=== PATIENT | male | born 1975 | race Two or more races ===

== ENCOUNTER 2019-02-22 06:55 | Emergency (ER) | payer MEDICAID ==
[~2019-02-22] VITALS: Ht 182.9 cm; Wt 79.0 kg
[2019-02-22 07:06] VITALS: BP 119/78
== END 2019-02-22 07:53 | disposition home or self-care (01) ==
LOC: ER 06:55
DX: L02.416 Cutaneous abscess of left lower limb (principal); K02.9 Dental caries, unspecified; Z72.0 Tobacco use; I10 Essential (primary) hypertension; F12.90 Cannabis use, unspecified, uncomplicated; Z87.828 Personal history of other (healed) physical injury and trauma
CPT/HCPCS: 99283

== ENCOUNTER 2019-02-26 08:21 | Emergency (ER) | payer MEDICAID ==
[~2019-02-26] VITALS: Ht 182.9 cm; Wt 84.0 kg
[2019-02-26 08:43] VITALS: BP 129/86
== END 2019-02-26 09:20 | disposition home or self-care (01) ==
LOC: ER 08:21
DX: L02.416 Cutaneous abscess of left lower limb (principal)
CPT/HCPCS: 99283

== ENCOUNTER 2019-03-14 03:15 | Emergency (ER) | payer MEDICAID ==
[~2019-03-14] VITALS: Ht 182.9 cm; Wt 82.0 kg
[2019-03-14 05:47] VITALS: BP 135/81
[2019-03-14] MEDS ORDERED: CEPHALEXIN 250MG CAPSULE PO ONE (06:45)
[2019-03-14] MEDS ORDERED: IBUPROFEN 800MG TABLET PO ONE (06:45)
== END 2019-03-14 08:01 | disposition home or self-care (01) ==
LOC: ER 03:15
DX: L02.416 Cutaneous abscess of left lower limb (principal); R68.84 Jaw pain; F12.10 Cannabis abuse, uncomplicated; F17.210 Nicotine dependence, cigarettes, uncomplicated
CPT/HCPCS: 99283; 99406

== ENCOUNTER 2019-07-07 15:42 | Emergency (ER) | payer MEDICAID ==
[~2019-07-07] VITALS: Ht 172.7 cm; Wt 75.0 kg
[2019-07-07 15:56] VITALS: BP 131/91
[2019-07-07] MEDS ORDERED: CEPHALEXIN 250MG CAPSULE PO ONE (16:30)
[2019-07-07] MEDS ORDERED: IBUPROFEN 600MG TABLET PO ONE (16:30)
== END 2019-07-07 16:41 | disposition home or self-care (01) ==
LOC: ER 15:42
DX: L02.211 Cutaneous abscess of abdominal wall (principal); R03.0 Elevated blood-pressure reading, without diagnosis of hypertension; F12.90 Cannabis use, unspecified, uncomplicated
CPT/HCPCS: 99283

== ENCOUNTER 2019-09-01 14:45 | Emergency (ER) | payer MEDICAID ==
[~2019-09-01] VITALS: Ht 180.3 cm; Wt 77.0 kg
[2019-09-01 15:14] VITALS: BP 146/89
== END 2019-09-01 18:14 | disposition home or self-care (01) ==
LOC: ER 14:45
DX: L03.113 Cellulitis of right upper limb (principal); S61.216A Laceration without foreign body of right little finger without damage to nail, initial encounter; W22.8XXA Striking against or struck by other objects, initial encounter; Y93.89 Activity, other specified; Y92.89 Other specified places as the place of occurrence of the external cause
CPT/HCPCS: 99283

== ENCOUNTER 2019-11-15 04:16 | Emergency (ER) | payer MEDICAID ==
[~2019-11-15] VITALS: Ht 182.9 cm; Wt 82.0 kg
[2019-11-15 05:11] VITALS: BP 124/76
== END 2019-11-15 05:14 | disposition home or self-care (01) ==
LOC: ER 04:16
DX: B00.9 Herpesviral infection, unspecified (principal)
CPT/HCPCS: 99282

== ENCOUNTER 2020-12-17 18:50 | Emergency (ER) | payer MEDICAID ==
[~2020-12-17] VITALS: Ht 182.9 cm; Wt 109.0 kg
[2020-12-17 19:03] VITALS: BP 121/88
[2020-12-17] MEDS ORDERED: CEPH500C2 MT (19:38)
[2020-12-17] MEDS ORDERED: CLOT15CR27 TP (19:38)
[2020-12-17] MEDS ORDERED: CEPHALEXIN 250MG CAPSULE PO ONE (19:45)
[2020-12-17] MEDS ORDERED: IBUPROFEN 600MG TABLET PO ONE (19:45)
== END 2020-12-17 20:30 | disposition home or self-care (01) ==
LOC: ER 18:50
DX: L03.116 Cellulitis of left lower limb (principal); L03.115 Cellulitis of right lower limb; B35.3 Tinea pedis
CPT/HCPCS: 99283

== ENCOUNTER 2021-09-26 09:01 | Emergency (ER) | payer MEDICAID ==
[~2021-09-26] VITALS: Ht 182.9 cm; Wt 109.0 kg
[~2021-09-26 09:01] MED LIST: CEPH500C2 MT; CLOT15CR27 TP
[2021-09-26 09:09] VITALS: BP 136/98
[2021-09-26] MEDS ORDERED: CEPH500C2 MT (12:50)
== END 2021-09-26 12:59 | disposition home or self-care (01) ==
LOC: ER 09:01
DX: L03.114 Cellulitis of left upper limb (principal); L03.113 Cellulitis of right upper limb; L03.811 Cellulitis of head [any part, except face]; M79.89 Other specified soft tissue disorders
CPT/HCPCS: 99283

== ENCOUNTER 2021-10-06 13:21 | Emergency (ER) | payer MEDICAID ==
[~2021-10-06] VITALS: Ht 177.8 cm; Wt 90.0 kg
[2021-10-06 13:31] VITALS: BP 167/126
[2021-10-06] MEDS ORDERED: SULF1TAB48 MT (15:29)
[2021-10-06] MEDS ORDERED: IBUP-2030 MT (15:29)
[2021-10-06] MEDS ORDERED: CLOT24CR TP (15:29)
[2021-10-06] MEDS ORDERED: IBUPROFEN 800MG TABLET PO ONE (15:30)
[2021-10-06] MEDS ORDERED: CEFTRIAXONE SODIUM 1 G/VIAL IM ONE (15:30)
[2021-10-06] MEDS ORDERED: CEFTRIAXONE SODIUM 1 G/VIAL IM NR (17:00)
[2021-10-06 17:03] LABS: CLARITY URINE CLEAR (CLEAR); COLOR URINE YELLOW (YELLOW); KETONES URINE TRACE (NEGATIVE); LEUKOCYTE ESTERASE URINE 1+ (NEGATIVE); NITRITE URINE NEGATIVE (NEGATIVE); OCCULT BLOOD URINE NEGATIVE (NEGATIVE); PH URINE 5.5 (4.5-8.0); PROTEIN URINE TRACE (NEGATIVE); SPECIFIC GRAVITY URINE 1.021 (1.005-1.030); UROBILINOGEN URINE 0.2 E.U./dL (0.2-1.0)
[2021-10-06 17:18] LABS: *AMPHETAMINES SCREEN URINE PRESUMTIVE POSITIVE (NEGATIVE); *BARBITURATES SCREEN URINE NEGATIVE (NEGATIVE); *BENZODIAZEPINES SCREEN URINE NEGATIVE (NEGATIVE); *COCAINE SCREEN URINE PRESUMTIVE POSITIVE (NEGATIVE); CANNABINOID URINE SCREEN PRESUMTIVE POSITIVE (NEGATIVE); METHADONE URINE SCREEN NEGATIVE (NEGATIVE); OPIATES URINE SCREEN NEGATIVE (NEGATIVE); PHENCYCLIDINE URINE SCREEN NEGATIVE (NEGATIVE)
[2021-10-10 04:07] LABS: NEISSERIA GONORRHOEAE NAA Negative (Negative)
== END 2021-10-06 17:00 | disposition home or self-care (01) ==
LOC: ER 13:55
DX: N48.1 Balanitis (principal); F15.129 Other stimulant abuse with intoxication, unspecified; F14.129 Cocaine abuse with intoxication, unspecified; F12.10 Cannabis abuse, uncomplicated; R03.0 Elevated blood-pressure reading, without diagnosis of hypertension
CPT/HCPCS: 80305; 81003; 87491; 87591; 99283; J0696

== ENCOUNTER 2021-11-15 07:20 | Emergency (ER) | payer MEDICAID ==
[~2021-11-15] VITALS: Ht 182.9 cm; Wt 100.0 kg
[~2021-11-15 07:20] MED LIST changes: +CLOT24CR TP; +IBUP-2030 MT; +SULF1TAB48 MT
[2021-11-15 07:34] VITALS: BP 142/100
[2021-11-15] MEDS ORDERED: TOPUD PO (09:17)
== END 2021-11-15 09:38 | disposition home or self-care (01) ==
LOC: ER 07:20
DX: K14.6 Glossodynia (principal); M54.2 Cervicalgia; R10.9 Unspecified abdominal pain; R03.0 Elevated blood-pressure reading, without diagnosis of hypertension; F12.90 Cannabis use, unspecified, uncomplicated; F15.90 Other stimulant use, unspecified, uncomplicated
CPT/HCPCS: 70490; 99284

== ENCOUNTER 2022-01-21 15:03 | Emergency (ER) | payer MEDICAID ==
[~2022-01-21] VITALS: Ht 182.9 cm; Wt 95.0 kg
[~2022-01-21 15:03] MED LIST changes: +TOPUD PO
[2022-01-21 15:26] VITALS: BP 154/95
[2022-01-21] MEDS ORDERED: KETOROLAC 60MG/2ML VIAL IM ONE (18:00)
== END 2022-01-21 18:09 | disposition left against medical advice (07) ==
LOC: ER 15:14
DX: M25.561 Pain in right knee (principal); M79.89 Other specified soft tissue disorders
CPT/HCPCS: 99281

== ENCOUNTER 2022-02-27 21:58 | Emergency (ER) | payer MEDICAID ==
[~2022-02-27] VITALS: Ht 182.9 cm; Wt 97.5 kg
[2022-02-27 22:34] VITALS: BP 137/90
[2022-02-28 02:12] LABS: BASOPHILS % 0.9 % (0.0-2.0); HEMATOCRIT. 40.5 % (42.0-52.0); HEMOGLOBIN. 13.6 g/dL (14.0-18.0); LYMPHOCYTES % 25.3 % (20.0-50.0); MEAN CORPUSCULAR HEMOGLOBIN 29.4 pg (28.0-32.0); MEAN CORPUSCULAR VOLUME 87.4 fL (80.0-94.0); MONOCYTES % 8.5 % (2.0-8.0); NEUTROPHILS % 61.3 % (40.0-76.0); PLATELET 272 x1000/uL (130-400); RED BLOOD CELL COUNT 4.63 mill/uL (4.7-6.1); RED CELL DISTRIBUTION WIDTH 14.1 % (11.6-14.6)
[2022-02-28 02:19] LABS: CHLORIDE 107 mEq/L (98-107)
[2022-02-28 02:27] LABS: ETHANOL BLOOD < 10 mg/dL
[2022-02-28 02:31] LABS: CLARITY URINE CLEAR (CLEAR); COLOR URINE YELLOW (YELLOW); KETONES URINE NEGATIVE (NEGATIVE); LEUKOCYTE ESTERASE URINE NEGATIVE (NEGATIVE); NITRITE URINE NEGATIVE (NEGATIVE); OCCULT BLOOD URINE NEGATIVE (NEGATIVE); PH URINE 5.5 (4.5-8.0); PROTEIN URINE NEGATIVE (NEGATIVE); SPECIFIC GRAVITY URINE 1.016 (1.005-1.030); UROBILINOGEN URINE 0.2 E.U./dL (0.2-1.0)
[2022-02-28 03:01] LABS: HEPATITIS B SURFACE ANTIGEN NEGATIVE
== END 2022-02-28 04:00 | disposition home or self-care (01) ==
LOC: ER 21:58
DX: Z20.5 Contact with and (suspected) exposure to viral hepatitis (principal); I45.6 Pre-excitation syndrome
CPT/HCPCS: 36415; 80053; 80320; 81003; 85025; 86705; 86709; 86803; 87340; 99283; G0480

== ENCOUNTER 2022-04-09 12:37 | Emergency (ER) | payer MEDICAID ==
[~2022-04-09] VITALS: Ht 182.9 cm; Wt 92.0 kg
[2022-04-09] MEDS ORDERED: KETOROLAC 60MG/2ML VIAL IM STA (16:48)
[2022-04-09] MEDS ORDERED: HYDROCODONE/ACETAMINOPHEN 5/325MG TABLET PO STA (17:46)
[2022-04-09] MEDS ORDERED: IBUP-2029 MT (19:59)
[2022-04-09] MEDS ORDERED: T3 PO (19:59)
[2022-04-09] MEDS ORDERED: HYDROCODONE/ACETAMINOPHEN 5/325MG TABLET PO NR (20:00)
[2022-04-09] MEDS ORDERED: KETOROLAC 60MG/2ML VIAL IM NR (20:00)
[2022-04-09] MEDS ORDERED: KETOROLAC 60MG/2ML VIAL IM ONE (20:30)
[2022-04-09 20:34] VITALS: BP 118/101
== END 2022-04-09 21:09 | disposition home or self-care (01) ==
LOC: ER 12:37
DX: S52.502A Unspecified fracture of the lower end of left radius, initial encounter for closed fracture (principal); F12.10 Cannabis abuse, uncomplicated; Z98.890 Other specified postprocedural states; F15.10 Other stimulant abuse, uncomplicated; Y04.0XXA Assault by unarmed brawl or fight, initial encounter; Y93.89 Activity, other specified; Y92.89 Other specified places as the place of occurrence of the external cause; Y99.8 Other external cause status
CPT/HCPCS: 29105; 73030; 73080; 73090; 73110; 73130; 73562; 96372; 99284; J1885; Z7610; A4565

== ENCOUNTER 2023-03-09 16:24 | Emergency (ER) | payer MEDICAID ==
[~2023-03-09] VITALS: Ht 180.3 cm; Wt 90.0 kg
[~2023-03-09 16:24] MED LIST changes: +IBUP-2029 MT; +T3 PO
[2023-03-09 16:38] VITALS: BP 154/103; PULSE 104; RESP 20; TEMP 98.1; O2SAT 100
[2023-03-09] MEDS ORDERED: CEPH500C2 MT (19:14)
== END 2023-03-09 20:11 | disposition home or self-care (01) ==
LOC: ER 16:24
DX: L03.116 Cellulitis of left lower limb (principal); F12.90 Cannabis use, unspecified, uncomplicated; F15.90 Other stimulant use, unspecified, uncomplicated
CPT/HCPCS: 99283

== ENCOUNTER 2023-03-30 15:08 | Emergency (ER) | payer MEDICAID ==
[~2023-03-30] VITALS: Ht 182.9 cm; Wt 87.0 kg
[2023-03-30 15:21] VITALS: BP 140/102; PULSE 99; RESP 16; TEMP 98.9; O2SAT 99
[2023-03-30] MEDS ORDERED: CEFTRIAXONE SODIUM 500MG VIAL IM ONE (18:45)
[2023-03-30 18:48] LABS: CLARITY URINE CLEAR (CLEAR); COLOR URINE YELLOW (YELLOW); GLUCOSE URINE NEGATIVE (NEGATIVE); KETONES URINE NEGATIVE (NEGATIVE); LEUKOCYTE ESTERASE URINE NEGATIVE (NEGATIVE); NITRITE URINE NEGATIVE (NEGATIVE); OCCULT BLOOD URINE NEGATIVE (NEGATIVE); PROTEIN URINE NEGATIVE (NEGATIVE); SPECIFIC GRAVITY URINE 1.014 (1.005-1.030)
[2023-03-30] MEDS ORDERED: DOXY100C5 MT (19:06)
[2023-03-30] MEDS ORDERED: LIDOCAINE HCL 1% 20ML VIAL (Pyxis) INJ INFIL ONE (19:45)
[2023-04-01] MEDS ORDERED: SUCCINYLCHOLINE CHLORIDE 200MG/10ML IV ONE (17:19)
[2023-04-01] MEDS ORDERED: DEXAMETHASONE 4MG/ML 1ML VIAL ONE (17:19)
[2023-04-01] MEDS ORDERED: GLYCOPYRROLATE 0.2 MG/ML 2ML VIAL ONE ×3 (17:19→18:31)
[2023-04-01] MEDS ORDERED: NEOSTIGMINE METHYLSULFATE 1MG/ML 10 ML VIAL ONE (17:19)
[2023-04-01] MEDS ORDERED: ROCURONIUM BROMIDE 10MG/ML VIAL 5ML IV ONE (17:19)
[2023-04-01] MEDS ORDERED: PROPOFOL 200MG/20ML VIAL IV ONE ×2 (17:19→18:36)
[2023-04-01] MEDS ORDERED: ONDANSETRON HCL 4MG/2ML INJ ONE (17:19)
[2023-04-01] MEDS ORDERED: MIDAZOLAM HCL 2 MG/2 ML VIAL ONE ×2 (17:20→18:28)
[2023-04-01] MEDS ORDERED: FENTANYL CITRATE/PF 50MCG/ML 2ML VIAL ONE (17:20)
[2023-04-01] MEDS ORDERED: HYDROMORPHONE HCL/PF 2MG/ML CPJ ONE (18:26)
[2023-04-02 13:07] LABS: CHLAMYDIA TRACHOMATIS NAA Negative (Negative); NEISSERIA GONORRHOEAE NAA Negative (Negative)
== END 2023-03-31 01:34 | disposition home or self-care (01) ==
LOC: ER 15:08
DX: A64 Unspecified sexually transmitted disease (principal); F12.10 Cannabis abuse, uncomplicated; F15.10 Other stimulant abuse, uncomplicated; Z79.899 Other long term (current) drug therapy
CPT/HCPCS: 99283; 87491; 87591; 81003; J1100; J2405; J2704; J3490; J0330; J2710

== ENCOUNTER 2023-04-15 18:10 | Emergency (ER) | payer MEDICAID ==
[~2023-04-15] VITALS: Ht 182.9 cm; Wt 86.1 kg
[~2023-04-15 18:10] MED LIST changes: +DOXY100C5 MT
[2023-04-15 18:18] VITALS: BP 148/101; O2SAT 99
[2023-04-15] MEDS: CEFTRIAXONE SODIUM 500MG VIAL IM ONE (20:29)
[2023-04-15] MEDS: LIDOCAINE HCL 1% 20ML VIAL (Pyxis) INJ INFIL ONE (20:29)
[2023-04-15] MEDS ORDERED: DOXY-456 MT (20:56)
[2023-04-15 21:06] VITALS: PULSE 102; RESP 20; TEMP 98.6
== END 2023-04-15 21:07 | disposition home or self-care (01) ==
LOC: ER 18:10
DX: N34.2 Other urethritis (principal); F12.90 Cannabis use, unspecified, uncomplicated; F15.90 Other stimulant use, unspecified, uncomplicated
CPT/HCPCS: 99283; 36415; 96372; J0696; J3490

== ENCOUNTER 2023-05-19 21:46 | Emergency (ER) | payer MEDICAID ==
[~2023-05-19] VITALS: Ht 182.9 cm; Wt 91.0 kg
[~2023-05-19 21:46] MED LIST changes: +DOXY-456 MT
[2023-05-19 21:58] VITALS: O2SAT 99
[2023-05-19] MEDS: KETOROLAC 15MG/ML VIAL IM ONE (23:15)
[2023-05-20] MEDS ORDERED: TOPUD MT (00:26)
[2023-05-20 00:40] VITALS: BP 108/72; PULSE 98; RESP 18; TEMP 98.3
== END 2023-05-20 00:43 | disposition home or self-care (01) ==
LOC: ER 21:46
DX: M25.512 Pain in left shoulder (principal); M25.562 Pain in left knee; F12.10 Cannabis abuse, uncomplicated; F15.10 Other stimulant abuse, uncomplicated; Z79.899 Other long term (current) drug therapy; W18.30XA Fall on same level, unspecified, initial encounter; Y93.89 Activity, other specified; Y92.89 Other specified places as the place of occurrence of the external cause; Y99.8 Other external cause status
CPT/HCPCS: 99283; 73562; J1885

== ENCOUNTER 2023-06-18 09:40 | Emergency (ER) | payer MEDICAID ==
[~2023-06-18] VITALS: Ht 182.9 cm; Wt 92.0 kg
[~2023-06-18 09:40] MED LIST changes: +TOPUD MT
[2023-06-18] MEDS ORDERED: AMOX1TAB16 PO (10:00)
[2023-06-18] MEDS ORDERED: DOXY100C5 PO (10:00)
[2023-06-18] MEDS: DOXYCYCLINE HYCLATE 100MG CAPSULE PO ONE (10:10)
[2023-06-18] MEDS: CEFTRIAXONE SODIUM 1G VIAL IM ONE (10:10)
[2023-06-18 10:13] VITALS: BP 122/84; PULSE 117; RESP 16; TEMP 98.2
== END 2023-06-18 10:25 | disposition home or self-care (01) ==
LOC: ER 09:40
DX: A64 Unspecified sexually transmitted disease (principal); K04.7 Periapical abscess without sinus; F12.10 Cannabis abuse, uncomplicated; F15.10 Other stimulant abuse, uncomplicated; Z79.899 Other long term (current) drug therapy
CPT/HCPCS: 99283; 96372; J0696

== ENCOUNTER 2023-07-23 12:43 | Emergency (ER) | payer MEDICAID ==
[~2023-07-23] VITALS: Ht 182.9 cm; Wt 94.0 kg
[~2023-07-23 12:43] MED LIST changes: +AMOX1TAB16 PO; +DOXY100C5 PO
[2023-07-23 13:23] VITALS: O2SAT 98
[2023-07-23] MEDS: ACETAMINOPHEN 325MG TABLET PO NR (16:19)
[2023-07-23] MEDS ORDERED: TETANUS, DIPHTHERIA, PERTUSSIS VAC/PF 0.5ML (>10YR OLD) IM ONE (17:30)
[2023-07-23 18:14] VITALS: BP 151/98; PULSE 95; RESP 18; TEMP 98.1
== END 2023-07-23 18:19 | disposition home or self-care (01) ==
LOC: ER 12:43
DX: F17.200 Nicotine dependence, unspecified, uncomplicated (principal); F12.10 Cannabis abuse, uncomplicated; F15.10 Other stimulant abuse, uncomplicated; Z79.899 Other long term (current) drug therapy; Y04.0XXA Assault by unarmed brawl or fight, initial encounter; Y93.89 Activity, other specified; Y92.89 Other specified places as the place of occurrence of the external cause; Y99.8 Other external cause status
CPT/HCPCS: 70486; 71250; 73610; 74176; 99284

== ENCOUNTER 2023-10-10 13:40 | Emergency (ER) | payer MEDICAID ==
[2023-10-10 13:42] VITALS: PULSE 64; O2SAT 96
== END 2023-10-10 14:18 | disposition left against medical advice (07) ==
LOC: ER 14:14
DX: R21 Rash and other nonspecific skin eruption (principal); Z53.21 Procedure and treatment not carried out due to patient leaving prior to being seen by health care provider

== ENCOUNTER 2023-10-12 19:01 | Emergency (ER) | payer MEDICAID ==
[~2023-10-12] VITALS: Ht 182.9 cm; Wt 90.0 kg
[2023-10-12 19:39] VITALS: O2SAT 100
[2023-10-12 22:35] LABS: CLARITY URINE CLEAR (CLEAR); COLOR URINE YELLOW (YELLOW); GLUCOSE URINE NEGATIVE (NEGATIVE); KETONES URINE NEGATIVE (NEGATIVE); LEUKOCYTE ESTERASE URINE TRACE (NEGATIVE); NITRITE URINE NEGATIVE (NEGATIVE); OCCULT BLOOD URINE NEGATIVE (NEGATIVE); PROTEIN URINE NEGATIVE (NEGATIVE); SPECIFIC GRAVITY URINE 1.015 (1.005-1.030); UROBILINOGEN URINE 0.2 E.U./dL (0.2-1.0)
[2023-10-12 22:45] LABS: BACTERIA URINE NONE SEEN; RBC URINE NONE SEEN /hpf (0-2); SQUAMOUS EPITHELIAL CELL URINE RARE /lpf (RARE/1+); WBC URINE 0-2 /hpf (0-2)
[2023-10-12] MEDS: CEFTRIAXONE SODIUM 500MG VIAL IM ONE (22:54)
[2023-10-12 23:20] VITALS: BP 158/80; PULSE 87; RESP 18; TEMP 36.78072; O2SAT 97
[2023-10-15 04:08] LABS: CHLAMYDIA TRACHOMATIS NAA Negative (Negative); NEISSERIA GONORRHOEAE NAA Negative (Negative)
== END 2023-10-12 23:22 | disposition home or self-care (01) ==
LOC: ER 19:01
DX: M71.9 Bursopathy, unspecified (principal); A64 Unspecified sexually transmitted disease; F12.10 Cannabis abuse, uncomplicated; F15.10 Other stimulant abuse, uncomplicated; Z79.899 Other long term (current) drug therapy
CPT/HCPCS: 99283; 87491; 87591; 81003; 96372; J0696

== ENCOUNTER 2024-02-21 08:37 | Emergency (ER) | payer MEDICAID ==
[~2024-02-21] VITALS: Ht 182.9 cm; Wt 90.7 kg
[~2024-02-21 08:37] MED LIST changes: -AMOX1TAB16 PO; -CEPH500C2 MT; -CLOT15CR27 TP; -CLOT24CR TP; -DOXY-456 MT; -DOXY100C5 MT; -DOXY100C5 PO; -IBUP-2029 MT; -IBUP-2030 MT; +IBUP-2741 MT; -T3 PO; -TOPUD MT; -TOPUD PO
[2024-02-21 08:41] VITALS: O2SAT 100
[2024-02-21 10:10] LABS: CHLORIDE 104 mEq/L (98-107); POTASSIUM 4.5 mEq/L (3.5-5.1); SODIUM 140 mEq/L (136-145)
[2024-02-21 10:11] LABS: CARBON DIOXIDE 30 mEq/L (21-32)
[2024-02-21 10:12] LABS: CALCIUM 9.7 mg/dL (8.7-10.4)
[2024-02-21 10:16] LABS: CREATININE 0.9 mg/dL (0.6-1.3); GLUCOSE 92 mg/dL (70-105); UREA NITROGEN BLOOD 12 mg/dL (9-23)
[2024-02-21] MEDS: IBUPROFEN 400MG TABLET PO ONE (10:16)
[2024-02-21 10:18] LABS: ALANINE AMINOTRANSFERASE 35 IU/L (10-49); ALBUMIN 4.2 g/dL (3.2-4.8); ASPARTATE AMINOTRANSFERASE 26 IU/L (<34); BILIRUBIN TOTAL 0.5 mg/dL (0.1-1.0)
[2024-02-21 10:19] LABS: PROTEIN TOTAL 6.8 g/dL (6.0-8.3)
[2024-02-21 10:25] LABS: BASOPHILS % 0.5 % (0.0-2.0); EOSINOPHILS % 1.6 % (0.0-5.0); HEMATOCRIT. 43.3 % (42.0-52.0); HEMOGLOBIN. 14.2 g/dL (14.0-18.0); LYMPHOCYTES % 10.8 % (20.0-50.0); MEAN CORPUSCULAR HEMOGLOBIN 29.3 pg (28.0-32.0); MEAN CORPUSCULAR HGB CONC 32.8 g/dL (31.0-37.0); MEAN CORPUSCULAR VOLUME 89.3 fL (80.0-94.0); MEAN PLATELET VOLUME 9.2 fl (7.4-10.4); MONOCYTES % 8.3 % (2.0-8.0); NEUTROPHILS % 78.8 % (40.0-76.0); PLATELET 283 x1000/uL (130-400); RED BLOOD CELL COUNT 4.85 mill/uL (4.7-6.1); RED CELL DISTRIBUTION WIDTH 14.4 % (11.6-14.6); WHITE BLOOD COUNT 10.4 x1000/uL (4.5-11.0)
[2024-02-21] MEDS ORDERED: IBUP-2028 MT (11:11)
[2024-02-21 12:00] VITALS: BP 152/78; PULSE 88; RESP 18; TEMP 37.05852; O2SAT 99
[2024-02-21] MEDS ORDERED: D ME PO (12:15)
== END 2024-02-21 12:15 | disposition home or self-care (01) ==
LOC: ER 08:37
DX: J32.9 Chronic sinusitis, unspecified (principal); L02.01 Cutaneous abscess of face; F12.90 Cannabis use, unspecified, uncomplicated; F15.90 Other stimulant use, unspecified, uncomplicated; Z98.890 Other specified postprocedural states
CPT/HCPCS: 36415; 80053; 85025; 99283

== ENCOUNTER 2024-04-15 21:27 | Emergency (ER) | payer MEDICAID ==
[~2024-04-15] VITALS: Ht 182.9 cm; Wt 91.0 kg
[~2024-04-15 21:27] MED LIST changes: +D ME PO; +IBUP-2028 MT
[2024-04-15 21:45] VITALS: BP 124/84; PULSE 106; RESP 18; TEMP 36.8; O2SAT 98
[2024-04-15] MEDS ORDERED: CEPH500C2 MT (23:31)
[2024-04-15] MEDS ORDERED: PERM60CR4 TP (23:31)
== END 2024-04-16 00:05 | disposition home or self-care (01) ==
LOC: ER 21:27
DX: L29.9 Pruritus, unspecified (principal); F12.90 Cannabis use, unspecified, uncomplicated; F15.90 Other stimulant use, unspecified, uncomplicated; Z79.899 Other long term (current) drug therapy; Z98.890 Other specified postprocedural states
CPT/HCPCS: 99283

== ENCOUNTER 2024-08-28 11:12 | Emergency (ER) | payer MEDICAID ==
[~2024-08-28] VITALS: Ht 182.9 cm; Wt 72.0 kg
[~2024-08-28 11:12] MED LIST changes: +CEPH500C2 MT; +PERM60CR4 TP
[2024-08-28 11:44] VITALS: O2SAT 97
[2024-08-28] MEDS ORDERED: PERM60CR4 TP (12:32)
[2024-08-28 12:54] VITALS: BP 148/99; PULSE 91; RESP 18; TEMP 37.2; O2SAT 97
== END 2024-08-28 15:58 | disposition home or self-care (01) ==
LOC: ER 11:12
DX: R44.2 Other hallucinations (principal); F12.90 Cannabis use, unspecified, uncomplicated; F15.90 Other stimulant use, unspecified, uncomplicated; Z79.899 Other long term (current) drug therapy; Z98.890 Other specified postprocedural states
CPT/HCPCS: 99282